=== PATIENT | male | born 1950 | race Caucasian/White ===

== ENCOUNTER → 2023-11-20 | Outpatient (CLI) | payer MEDICARE ==
--- NOTE | 2023-11-20 10:51 | MR ---
EXAMINATION TYPE: MR Prostate wo/w con DATE OF EXAM: 11/20/2023 9:38 AM COMPARISON: None. CLINICAL INDICATION:Male, 73 years old with history of C61 MALIGNANT NEOPLASM OF PROSTATE; Prostate C a, Elevated PSA TECHNIQUE: Multi-planar, multi-sequence imaging of the pelvis is performed prior to and following the uncomplicated administration of bolus intravenous gadolinium. CONTRAST: 5.5 Gadavist Interpretive Criteria: PI-RADS v2.1 SERUM PSA: =8.99 =10.40 SURGICAL PATHOLOGY: Positive biopsy 10/11/2023, [place] 3+3 6, 3+4 7 involving the right lateral base, right base and right lateral mid portions FINDINGS: Prostatic dimensions: 5.3 x 6.5 x 4.4 cm. Ellipsoid Volume:79.37 (PSA density=0.13 ng/mL/mL) CENTRAL GLAND (Central and Transition Zones/CZ+TZ): Multiple bilateral, heterogenous appearing hypertrophic stromal nodules, without suspicious lesion. T here is increased DWI signal within BPH nodules scattered throughout the gland. Median lobe hypertrop hy with protrusion into the base of the bladder. (PI-RADS 2) PERIPHERAL ZONE (PZ): Bilateral linear, indistinct wedgelike areas of low ADC, and low T2 signal, No evidence of masslike a bnormality, or localized perfusional hypervascularity, to further suggest a focus of clinically signi ficant prostate cancer. (PI-RADS 2) SEMINAL VESICLES (SV): Symmetric and unremarkable. PERIPROSTATIC TISSUES: Unremarkable. LYMPH NODES: No enlarged pelvic lymph node. REMAINING PELVIS: Bladder wall is within normal limits given distention. No abnormal free or organized intrapelvic fluid collection. No pathologic bowel dilation or mural thickening. No hernia visualized OSSEOUS STRUCTURES: No suspicious osseous abnormality. IMPRESSION: 1. No specific features for high-risk prostate cancer. Scattered BPH nodules without suspicious featu res. Maximum PI-RADS score: 2. 2. Substantial BPH, estimated gland volume 79.37 mL. 3. No suspicious osseous lesion. No lymphadenopathy. No evidence of prostate adenocarcinoma involving the periprostatic tissues.
== END | disposition home or self-care (01) ==
LOC: RADMRIMAIN 08:32
PROVIDERS: ATTEND Urology
DX: C61 Malignant neoplasm of prostate (principal); N40.0 Benign prostatic hyperplasia without lower urinary tract symptoms
CPT/HCPCS: 72197; A9585

== ENCOUNTER → 2023-11-20 | Outpatient (CLI) | payer MEDICARE ==
[2023-11-20 15:44] LABS: Appearance,Urine Clear (Clear); Bilirubin,Urine Negative (Negative); Blood,Urine Negative (Negative); Color,Urine Yellow (Yellow); Ketones,Urine 15 (Negative); Nitrite,Urine Negative (Negative); Specific Gravity,Urine 1.015 (1.001-1.030); Urobilinogen,Urine 0.2 E.U./DL
[2023-11-20 15:51] LABS: BUN/Creat Ratio 20.44 Ratio (12.00-20.00); Basophils # (A) 0.08 X 10*3/uL (0.00-0.10); Basophils % (A) 1.6 %; Blood Urea Nitrogen 18.4 mg/dL (9.0-27.0); Calcium 9.7 mg/dL (8.7-10.3); Carbon Dioxide 25.6 mmol/L (21.6-31.8); Chloride 100 mmol/L (96-109); Eosinophils # (A) 0.03 X 10*3/uL (0.04-0.35); Eosinophils % (A) 0.6 %; Glucose 105 mg/dL (70-110); HCT 42.7 % (39.6-50.0); HGB 13.6 g/dL (13.0-17.0); Lymphocytes # (A) 0.99 X 10*3/uL (0.90-5.00); Lymphocytes % (A) 20.2 %; MCH 29.4 pg (27.0-32.0); MCHC 31.9 g/dL (32.0-37.0); MCV 92.2 FL (80.0-97.0); Mean Platelet Volume 9.7 FL (9.5-12.2); Monocytes % (A) 6.1 %; NRBC Per 100 WBC 0 X 10*3/uL (0.00-0.01); Neutrophils % (A) 71.3 %; Platelet Count 281 X 10*3/uL (140-440); Potassium 4.6 mmol/L (3.5-5.5); RBC 4.63 X 10*6/uL (4.40-5.60); RDW 13.2 % (11.5-14.5); Sodium 138 mmol/L (135-145); WBC 4.91 X 10*3/uL (4.50-10.00)
== END | disposition home or self-care (01) ==
LOC: LABPAT 09:52
PROVIDERS: ATTEND Urology
DX: Z01.812 Encounter for preprocedural laboratory examination (principal); C61 Malignant neoplasm of prostate
CPT/HCPCS: 80048; 81003; 85025; 86850; 86900; 86901; 87086

== ENCOUNTER 2023-12-06 10:17 | Day surgery (SDC) | payer MEDICARE ==
--- NOTE | 2023-12-06 07:40 | P.HPIHPCON ---
History of Present Illness H&P Date: 12/03/23 Chief Complaint: Prostate cancer This is a 73-year-old male with history of [place] 7(3+4) prostate cancer. He was initially diagnosed with prostate cancer back in 2021, at that time biopsy showed evidence of [place] 6 prostate cancer. Subsequently underwent a repeat biopsy in October 2023 which showed progression to [place] 7 prostate cancer. At that point I discussed with him the option of robotic radical prostatectomy, radiation therapy or continued surveillance. Risk and benefit of each approach were discussed. He agreed to proceed with a robotic radical prostatectomy, aware the risk which includes but not limited to bleeding, infection, injury to nearby organs. Discussed risk of urinary incontinence and erectile dysfunction. Risk of cancer recurrence, need for postoperative surveillance and the potential of additional treatments was also discussed. Medical complication of surgery was discussed also. He understood all the risk and agreed to proceed Consent for Procedure: I have explained the operation/procedure to the patient, including the risks, benefits, side effects, alternative therapies (including not receiving the proposed treatment or service), the likelihood of the patient achieving his/her goals, and potential recuperation problems for the procedure/sedation/analgesia, as well as any blood products, if indicated. I also explained to the patient the risks, benefits and side effects of the alternatives, as well as the risks related to not receiving the proposed procedure, care, treatment, or services. Past Medical History - Past Family History Father Family Medical History: Cancer, Coronary Artery Disease (CAD) Mother Family Medical History: Coronary Artery Disease (CAD), Diabetes Mellitus Brother(s) Family Medical History: Diabetes Mellitus Medications and Allergies Home Medications Medication Instructions Recorded Confirmed Type Tamsulosin HCl [Flomax] 0.4 mg PO DAILY 12/04/23 12/04/23 History Unk Multi Vitamin 1 tab PO DAILY 12/04/23 12/04/23 History Allergies Allergy/AdvReac Type Severity Reaction Status Date / Time No Known Allergies Allergy Verified 12/04/23 12:44 Surgical - Exam - General no distress, no pain - Eyes normal ocular movement, no pale - ENT normal nares, normal mucosa - Respiratory normal expansion, normal respiratory effort - Abdomen Abdomen: soft, non tender Assessment and Plan Assessment: OR for robotic radical prostatectomy with bilateral pelvic lymph node dissection
[~2023-12-06 10:17] MED LIST: HYDROmorphone 0.5 MG/0.5 ML SYRINGE IVP PRN; LIDOCAINE 1% (10MG/ML) FOR IV START INTRADERMA PRN; fentaNYL (PF) 50 MCG/ML 2 ML AMP IVP PRN
[2023-12-06] MEDS: IV FLUID CONTINUATION 1,000 ML IV ONE ×2 (11:00)
[2023-12-06] MEDS: ONDANSETRON 4 MG/2 ML VIAL IVP ONE (11:01)
[2023-12-06] MEDS: DEXAMETHASONE SOD PHOSPHATE 4 MG/ML 1 ML VIAL IV ONE (11:01)
[2023-12-06] MEDS: LACTATED RINGERS 1,000 ML IV SCH (11:02)
[2023-12-06] MEDS: HEPARIN SODIUM,PORCINE 5,000 UNIT/ML 1 ML VIAL SQ PRN (11:02)
[2023-12-06] MEDS: MIDAZOLAM 2 MG/2 ML VIAL IV PRN (11:10)
[2023-12-06] MEDS ORDERED: ONDANSETRON 4 MG/2 ML VIAL IVP PRN (11:19)
--- NOTE | 2023-12-06 11:26 | P.ANPRN ---
Procedure Note - Anesthesia - Nerve Block Performed Bilateral Erector Spinae Single Time Out Performed: Yes Date of Procedure: 12/06/23 Procedure Start Time: : Procedure Stop Time: :14 Location of Patient: PreOp Indication: Acute Post-Operative Pain, Analgesia, Requested by Surgeon Sedation Type: Sedate with meaningful contact maintained Preparation: Sterile Prep Position: Prone Needle Types: Pajunk Needle Gauge: 21 Ultrasound used to visualize needle placement: Yes Ultrasound used to observe medication spread: Yes Injectate: 0.5% Ropivacaine (see comment for volume) (Ropiv 20ml+decadron 4mg---Each side) Blood Aspirated: No Pain Paresthesia on Injection Noted: No Resistance on Injection: Normal Image Stored and Saved: Yes Events: Uneventful and Well Tolerated
[2023-12-06] MEDS: BUPIVACAINE (PF) 0.25% 30 ML VIAL SQ ONE ×2 (12:11→15:18)
[2023-12-06] MEDS ORDERED: ROCURONIUM 10 MG/ML (5 ML VIAL) IV ONE (12:13)
[2023-12-06] MEDS ORDERED: WATER FOR INJECTION, STERILE 10 ML VIAL IV ONE (12:13)
[2023-12-06] MEDS ORDERED: DEXAMETHASONE SOD PHOSPHATE 4 MG/ML 1 ML VIAL ONE (12:13)
[2023-12-06] MEDS ORDERED: ROPIVACAINE 5 MG/ML 30 ML VIAL ONE (12:13)
[2023-12-06] MEDS ORDERED: KETAMINE HCL IN 0.9 % NACL 50 MG/5 ML SYRINGE ONE (12:13)
[2023-12-06] MEDS ORDERED: fentaNYL (PF) 50 MCG/ML 2 ML AMP ONE (12:13)
[2023-12-06] MEDS ORDERED: MIDAZOLAM 2 MG/2 ML VIAL ONE (12:13)
[2023-12-06] MEDS ORDERED: PHENYLEPHRINE 10 MG/ML VIAL ONE (12:13)
[2023-12-06] MEDS ORDERED: PROPOFOL 10 MG/ML 20 ML VIAL IV ONE (12:13)
[2023-12-06] MEDS ORDERED: HYDROmorphone (PF) 1 MG/ML ONE (12:13)
[2023-12-06] MEDS: LACTATED RINGERS 1,000 ML IV ONE (15:00)
--- NOTE | 2023-12-06 15:19 | P.OP ---
Date of Procedure: 12/06/23 Preoperative Diagnosis: Prostate cancer Postoperative Diagnosis: Same Procedure(s) Performed: Robotic radical prostatectomy with right-sided pelvic lymph node dissection Implants: None Anesthesia: MAYRA Surgeon: Evaristo Gaxiola Estimated Blood Loss (ml): 100 Pathology: other (Prostate, bilateral seminal vesicle, right-sided pelvic lymph nodes) Condition: stable Disposition: PACU Indications for Procedure: This is a 73-year-old male with history of [place] 7(3+4) prostate cancer. He was initially diagnosed with prostate cancer back in 2021, at that time biopsy showed evidence of Jos 6 prostate cancer. Subsequently underwent a repeat biopsy in October 2023 which showed progression to [place] 7 prostate cancer. At that point I discussed with him the option of robotic radical prostatectomy, radiation therapy or continued surveillance. Risk and benefit of each approach were discussed. He agreed to proceed with a robotic radical prostatectomy, aware the risk which includes but not limited to bleeding, infection, injury to nearby organs. Discussed risk of urinary incontinence and erectile dysfunction. Risk of cancer recurrence, need for postoperative surveillance and the potential of additional treatments was also discussed. Medical complication of surgery was discussed also. He understood all the risk and agreed to proceed Description of Procedure: After preoperative antibiotics were started, the patient was taken to the operating room. Anesthesia was induced and the patient was placed in a supine position, with adequate padding of the pressure points, shoulders, back, legs and arms. He was then prepped and draped in the standard fashion. A critical pause was performed using two patient identifiers. A 16F zee catheter was placed to gravity drainage. A pneumo-peritoneum was created with placement of a Veress needle to 20 mm Hg without complication, and a 8 Fr trocar was placed above the umbillicus. Under direct vision a 8mm robotic ports was placed lateral to each rectus slightly below the camera port. The left iliac fossa 8mm port was placed. The right household personal assistant right iliac fossa 12mm port and right paramedian 5mm portwere placed. After the patient was placed in the trendelenberg position, the robot was then docked to the 8mm robotic ports and then each robotic arm and tower was checked in relation to the patient's legs and hands to avoid inadvertent compression. The peritoneal cavity was inspected. An inverted U-shaped incision began laterally to the left medial umbilical ligament and extended high across the midline to the right umbilical ligament. The limbs of the "U" extended to the level of the vasa on both sides. We next developed the preperitoneal space and the space of Retzius. Cautery was used to dissected the bladder away from the prostate. After the ant erior bladder neck was incised and the bladder entered the the posterior bladder neck was exposed and the ureteral orifces identified. Patient had significant enlargement of the median lobe with significant intravesical extension. The posterior bladder neck was then incised and dissected away from the prostate. The vas and the seminal vesicles were now exposed and dissected to their insertions into the prostate and were not spared. The posterior layer of the Denonvillier's fascia was incised to enter titus the plane between prostate and perirectal fat. Each lateral pedicle was controlled with vessel sealer. Complete nerve preservation was performed bilaterally. The puboprostatic ligament was incised where it inserted into the apex of the prostate and a plane between urethra and dorsal venous complex developed to expose the anterior urethral surface. The anterior wall of the urethra was transected with the cut setting a few millimeters distal to the apex of the prostate. The dorsal vein was ligated using 3-0 V lock Right obturator and external iliac lymph node packets were carefully dissected after careful visualization of the hypogastric artery and obturator nerve. There was careful attention paid to hemostasis with judicious use of cautery. Attention was then carried to the left-sided pelvic lymph nodes. Of note patient's sigmoid was quite adherent to the sidewall, no clear plane could be identified between the sigmoid and the sidewall. Given the concern of potential bowel injury decision was made not to perform the left-sided pelvic lymph nodes The urethrovesical anastomosis was performed . the posterior denovillers was reapproximated using 3-0 V lock. A 9 and 9 inch 3-0 V-Lock suture was used to anastomose the urethra and bladder, starting at the 6:00 posterior position. Mucosa was secured in every stitch, to ensure a mucosa to mucosa anastomosis. The stitch was regularly cinched and the anastomosis tightened. Care was taken to not violate the ureteral orifices. The Zee catheter was advanced, the bladder filled, and the anastomosis was tested, as described above. Anastomsis was watertight at 150mL The periumbilical fascia was closed with 1-0-PDS suture in [id number] fashion. All ports were closed with a subcuticular 4-0 monocryl and Dermabond. Sponge, instrument, and needle counts were correct at the end of the case x2. All specimens including prostate and lymph nodes were sent to pathology for diagnosis and will be available in a week. The patient tolerated the surgery well and without complication. He awoke without difficulty and was taken to the recovery room in stable condition
[2023-12-06] MEDS: KETOROLAC 15 MG/ML 1 ML VIAL IVP SCH (17:43)
[2023-12-06] MEDS: HYDROcodone/APAP 5-325MG 1 EACH TAB PO PRN (20:48)
[2023-12-06] MEDS: D5-0.45% NACL WITH KCL 20MEQ/L 1,000 ML IV SCH (22:18)
[2023-12-07] MEDS: HEPARIN SODIUM,PORCINE 5,000 UNIT/ML 1 ML VIAL SQ SCH (00:44)
[2023-12-07 08:30] VITALS: BP 112/54; PULSE 62; RESP 17; TEMP 98.1
--- NOTE | 2023-12-07 09:46 | P.DS ---
Providers Attending physician: Evaristo Gaxiola MD Primary care physician: Stated None Hospital Course: This is a 73-year-old male with a history of [place] 7 prostate cancer. Underwent a robotic prostatectomy on December 05. Please see op note dated December 05 for surgery details. The patient was admitted to the hospital postoperatively. He was discharged home on postop day #1, at time of discharge he was tolerating a diet, ambulating, pain was controlled Plan - Discharge Summary Discharge Rx Participant: Yes New Discharge Prescriptions: No Action Tamsulosin HCl [Flomax] 0.4 mg PO DAILY Unk Multi Vitamin 1 tab PO DAILY Discharge Medication List Tamsulosin HCl [Flomax] 0.4 mg PO DAILY 12/04/23 [History] Unk Multi Vitamin 1 tab PO DAILY 12/04/23 [History] Activity/Diet/Wound Care/Special Instructions: Increase your fluid intake It is normal to have blood in the urine No heavy lifting or straining for 4 weeks
== END 2023-12-07 12:28 | disposition home or self-care (01) ==
LOC: OR 10:17 → 4SSUR 15:30 → OR 12-07 12:28
PROVIDERS: ATTEND Urology
DX: C61 Malignant neoplasm of prostate (principal); G89.18 Other acute postprocedural pain; M19.90 Unspecified osteoarthritis, unspecified site; Z79.899 Other long term (current) drug therapy; Z90.79 Acquired absence of other genital organ(s)
CPT/HCPCS: 86900; 86901; 86850; 55866; J2250; J1644 ×2; J1100; J0690; J2405; J1885; J0665; S2900; 64999; 88307; 88309